=== PATIENT | female | born 1940 | race Caucasian/White ===

== ENCOUNTER 2020-08-30 08:00 | Outpatient (REF) | payer MEDICARE, OTHER, SELFPAY | END 2020-08-30 08:01 | disposition home or self-care (01) | LOC: HO.SH 08:00 | PROVIDERS: Visit Provider Internal Medicine | DX: Z13.89 Encounter for screening for other disorder (principal) | CPT/HCPCS: 92700 ==

== ENCOUNTER 2020-09-27 07:55 | Outpatient (REF) | payer MEDICARE, OTHER, SELFPAY ==
--- NOTE | 2020-09-27 09:54 | MHC.AU.P13 ---
Adult Audiological Evaluation Date of Visit: 09/27/20 Consulting It Architect Used: Not Applicable Reason for Appointment: Audiologic re-evaluation due to increased hearing and speech understanding difficulties as well as recent left ear discomfort. Previous Hearing Test Results: 12/25/2018 Right ear - Moderate to profound sensorineural hearing loss with 76% speech understanding at a level of 80 dB HL. Left ear - Borderline normal to severe sensorineural hearing loss with 76% speech discrimination at 80 dB HL. 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[employer] Systems Model: Virto V 50-10 Serial Number: [id number] Battery Size: 10 Warranty: 03/09/2019 Dispensed By: [facility] Date of Fittin02/20/2016 Hearing Instrument History- Left Ear: Book Store Associate: Phonak Model: Virto V 50-10 Serial Number: [id number] Battery Size: 10 Warranty: 03/09/2019 Dispensed By: [facility] Date of Fittin02/20/2016 Otoscopy: Right Ear: Unremarkable Left Ear: Dull tympanic membrane compared to right Tympanometry: Right Ear: Normal Middle Ear System (Type A) Left Ear: Normal Middle Ear System (Type A) Hearing Evaluation: Transducer(s) Used: Insert Earphones Bone Conduction Method: Conventional Audiometry Stimuli Used: Pure Tones Right Ear: Description of Hearing: Moderate to severe sensorineural hearing loss Left Ear: Description of Hearing: Borderline normal to severe sensorineural hearing loss Speech Recognition Threshold (SRT): Method Used: Monitored Live Voice Stimuli Used: Spondee Words Right Ear: 50 dB HL Left Ear: 40 dB HL Word Discrimination: Method: Recorded Lists Word Lists Used: NU-6 Right Ear: 52% at most comfortable hearing level of 85 dB HL 48% at 90 dB HL 56% at 80 dB HL Left Ear: 44% at most comfortable hearing level of 70 dB HL 76% at 75 dB HL Comparison: Compared to most recent evaluation: Hearing thresholds have decreased for both ears by 5-20 dB at 500-4000 Hz with speech discrimination for the left ear decreasing by 20% for the left ear compared to 2019 results. Recommendations: Recommendations: Audiological re-evaluation in one year. Trial with amplification is recommended. Medical clearance from a physician is required before fitting. Recommendations (Other): 1) In November, Homero's medical insurance coverage is changing. She will be investigating the hearing aid benefit and providers available. 2) A Hearing Aid Evaluation appointment is scheduled at this office for 10/04/2020 to fit a pair of Phonak Audeo M [id number]-ear hearing aids to trial for a few weeks, as well as discuss further appropriate styles available. Diagnosis: Primary Diagnosis: H90.3 Bilateral Sensorineural Hearing Loss Services Performed: Services Performed: Comprehensive Audiological Evaluation (CPT 99151) Tympanometry (CPT 25744) Signature: Provider: Erinn Garduno, CCC-A
== END 2020-09-27 07:56 | disposition home or self-care (01) ==
LOC: HO.SH 07:55
PROVIDERS: PCP Internal Medicine; Referring Provider Internal Medicine; Visit Provider Internal Medicine
DX: H90.3 Sensorineural hearing loss, bilateral (principal)
CPT/HCPCS: 92557; 92567

== ENCOUNTER 2020-10-04 09:59 | Outpatient (REF) | payer SELFPAY | END 2020-10-04 10:00 | disposition home or self-care (01) | LOC: HO.HAP 09:59 | PROVIDERS: PCP Internal Medicine; Referring Provider Internal Medicine; Visit Provider Internal Medicine | DX: Z13.89 Encounter for screening for other disorder (principal) | CPT/HCPCS: 92700 ==

== ENCOUNTER 2020-10-17 12:46 | Outpatient (REF) | payer SELFPAY | END 2020-10-17 12:47 | disposition home or self-care (01) | LOC: HO.HAP 12:46 | PROVIDERS: PCP Internal Medicine; Referring Provider Internal Medicine; Visit Provider Internal Medicine | DX: Z13.89 Encounter for screening for other disorder (principal) | CPT/HCPCS: 92700 ==

== ENCOUNTER 2020-11-06 12:14 | Outpatient (REF) | payer SELFPAY | END 2020-11-06 12:15 | disposition home or self-care (01) | LOC: HO.HAP 12:14 | PROVIDERS: Visit Provider Internal Medicine | DX: Z13.89 Encounter for screening for other disorder (principal) ==

== ENCOUNTER 2025-03-16 10:18 | Outpatient (AMB) | payer MEDICARE, SELFPAY ==
--- NOTE | 2025-03-16 10:23 | MHC.OFFVIS ---
Vital Signs 03/16/25 10:29 Height 5 ft Weight 170 lb BMI 33.2 BP 132/68 Blood Pressure Location Lt brachial Position Sitting Pulse 81 Pulse Source Pulse Oximeter Pulse Oximetry (%) 93 Oxygen Delivery Method Room Air Intake Visit Reasons: chronic cough Dry Cure Worker Required: No Bucket Hooker: Bucket Hooker offered & declined Accompanied by: Self / Same As Patient Allergies No Known Allergies Allergy (Verified 03/16/25 10:32) Medication List - Last Reconciled 03/16/25 by Olga George LPN amlodipine 5 mg PO DAILY omeprazole 20 mg PO DAILY HPI HPI chronic cough: Details: Homero is a pleasant 84-year-old female, former minimal smoker, with underlying hypertension, glaucoma, and paraesophageal hernia. She was referred by PCP for pulmonary evaluation for chronic cough. She reports cough has been present for the last 5 years and progressively worsening over the last year. She also reports associated productive cough yellow to white mucus, runny nose and nasal congestion. Denies fevers, chills or chest congestion. She also reports increased dyspnea, she would participate in line dancing 3 days a week for an hour and a half with no respiratory symptoms, but more recently has noticed she is unable to sustain that length of activity. She denies prior history of asthma, does endorse significant secondhand smoke exposure for many years. She denies any reflux symptoms. She denies history of recurrent respiratory infections. She is unsure of seasonal allergies, no recent allergy testing. No pets at home. She denies any occupational exposures. She denies any pertinent family history. Of note patient does have large hernia which is being monitored by thoracic surgery. [facility] Social History (Updated 03/16/25 @ 10:35 by Olga George LPN) Patient Tobacco Use Status: Never used Tobacco Review of Systems Const Denies chills, Denies excessive sweating, Denies fever(s), Denies headache(s) and Denies night sweats Eyes Denies dry eyes, Denies irritation and Denies itchy eyes ENT Reports Normal hearing present and Denies headache(s) Card Denies chest pain, Denies chest pain at rest, Denies chest pain with activity, Denies claudication, Denies leg edema, Denies orthopnea and Denies paroxysmal nocturnal dyspnea Resp Denies chest congestion, Denies excessive phlegm production, Denies pain on inspiration, Denies pain with cough and Denies stridor Musc Denies myalgias Neuro Reports Normal hearing present and Denies headache(s) Endo Denies excessive sweating Eldon/Lymph Denies lymphadenopathy Aller/Immun Denies itchy eyes and Reports seasonal rhinorrhea Physical Exam Vital Signs: Last Vital Signs Pulse 81 03/16/25 10:29 BP 132/68 03/16/25 10:29 Pulse Ox 93 03/16/25 10:29 Oxygen Delivery Method Room Air 03/16/25 10:29 BMI result Body Mass Index 33.2 Const General: cooperative, healthy appearing, comfortable, no acute distress, well developed and alert Orientation/consciousness: patient oriented x3 Limitations: no limitations HEENT Head: Yes normal to inspection, Yes normocephalic and Yes atraumatic Ears: hearing grossly normal bilaterally and external ears normal Eyes General: appearance normal, both eyes and all related structures Eyelids: Yes eyelids normal Sclerae: sclerae normal EOM: EOMs intact bilaterally Neck Neck: Yes normal visual inspection and Yes no lymphadenopathy Lymphatic: no lymphadenopathy noted Chest Chest palpation & inspection: normal inspection of the chest Resp Effort & Inspection: normal respiratory effort, able to speak in complete sentences, no audible wheezes, no cough, no stridor, not tachypneic, no tripod positioning and no use of accessory muscles Auscultation: clear to auscultation bilaterally Cardio Jugular venous distension: no JVD Rate: regular rate Rhythm: regular rhythm Skin Other: warm, dry General skin exam: no rashes or lesions noted Neuro General: patient oriented x3 Cranial nerves: Yes Normal hearing present Cognition (Neuro): normal cognition Gait exam (Neuro): Normal gait present Extrem General: Yes normal to inspection, Yes capillary refill normal, Yes no clubbing, cyanosis or edema and Yes no pedal edema Psych Appearance: grossly normal and well kempt Speech and movement: Normal speech and movement present and Clear speech present Affect: normal affect Attitude: cooperative Thought process: Normal thought process present Thought content: Normal thought content present Insight: Good insight present (Psych) Judgement: Good judgement present (Psych) Assessment & Plan Assessment & Plan (1) Chronic cough: Code(s): R05.3 - Chronic cough Category: Medical (2) Environmental allergies: Code(s): Z91.09 - Other allergy status, other than to drugs and biological substances Category: Medical Plan Homero presents for pulmonary evaluation for chronic cough, unclear etiology. Will send for PFT to assess for obstructive defect. Will send for RAST testing to assess for an allergic component. Will send for chest x-ray to assess for any underlying parenchymal condition contributing to symptoms. All questions were answered and patient is in agreement of plan. Will follow-up to review results or sooner if needed. Orders: Orders Complete Blood Count Auto Diff Today Z91.09 - Other allergy status, other than to drugs and biological substances PFT pulmonary function test Today R05.3 - Chronic cough XR chest 2V Today R05.3 - Chronic cough Immunoglobulin E Today Z91.09 - Other allergy status, other than to drugs and biological substances Resp Allergy Profile Region I Today Z91.09 - Other allergy status, other than to drugs and biological substances Coding Level of Care Code New Pt Level 4 (67504) Diagnoses Chronic cough R05.3 Environmental allergies Z91.09
[2025-03-16 10:29] VITALS: BP 132/68; PULSE 81; O2SAT 93; BMI 33.2
--- OUTSIDE RECORDS SUMMARY | 2025-03-16 11:31 | XMS_ITS | Clinical Summary ---
Author Organization [facility] Address [address] [place] [address] Phone Care Team Providers Care Editorial Assistant Name Role Phone Edgardo Mott MD Primary Care Provide r Family History Medical History Relation Name Comments Breast cancer Son Relation Name Status Comments Son Alive Social History Tobacco Use Types Packs/Day Years Used Date Smoking Tobacco: Never Assessed Comments No Sex and Gender Information Value Date Recorded Sex Assigned at Female 10/07/2024 10:16 AM EST Legal Sex Female 6:08 AM EST Gender Identity Female 10/07/2024 10:16 AM EST Sexual Orientation Straight 10/07/2024 10 :16 AM EST Obstetrics History Para Term AB IAB SAB Ectopic Multiple Livin g Live Births 2 Last Filed Vital Signs Vital Sign Reading Time Taken Comments Blood Pressure - - Pulse - - Temperature - - Respiratory Rate - - Oxygen Saturation - - Inhaled Oxygen Concentration - - Weight 77.1 kg (170 lb) 10/12/2024 2:49 PM EST Height 152.4 cm (5') 10/12/2024 2:49 PM EST Body Mass Index 33.2 10/12/2024 2:49 PM EST Plan of Treatment Health Maintenance Due Date Last Done Comments Zoster Vaccines (2 of 2) 09/26/2020 08/01/2020, 11/19 Cholesterol Screening (Lipid Panel) 10/20/2022 Depression Screening 10/20/2022 Falls Risk Assessment 10/20/2022 Medicare Annual Wellness Visit 10/20/2022 Osteoporosis Screening (Bone Density Screening) 10/20/2022 Social Influencers of Health Screening 10/20/2022 Hypertension/CHF/CAD Annual BMP Blood Test 10/13/2024 COVID-19 Vaccine (8 - Pfizer risk 2023- season) 2025 07/30/2024, 11/14/2023, 09/12/2022, Additional history exists DTaP,Tdap,and Td Vaccines (3 - Td or Tdap) 06/23/2025 06/23/2015, 06/15/2003 Pneumococcal Vaccine: 50+ Years Completed 03/23/2015, 09/01/2003 RSV Immunization Adult Patients Completed 08/22/2023 Influenza Vaccine Completed 07/30/2024, , 07/25/2022, Additional history exists HIB Vaccines Aged Out No longer eligi ble based on patient's age to complete this topic HPV Vaccines Aged Out No longer eligi ble based on patient's age to complete this topic Hepatitis A Vaccines Aged Out No long er eligible based on patient's age to complete this topic Hepatitis B Vaccines Aged Out No long er eligible based on patient's age to complete this topic IPV Vaccines Aged Out No longer eligi ble based on patient's age to complete this topic MMR Vaccines Aged Out No longer eligi ble based on patient's age to complete this topic Meningococcal ACWY Vaccine Aged Out N o longer eligible based on patient's age to complete this topic Meningococcal B Vaccine Aged Out No l onger eligible based on patient's age to complete this topic RSV Immunization Patients Under 20 months Aged Out No longer eligible based on patient's age to complete this topic Varicella Vaccines Aged Out No longer eligible based on patient's age to complete this topic Medical Devices Implanted Type Area Mold Mover Device Identifier Shelf Expiration Date Model / Serial / Lot Marker Tiss Wing 2trggr 17gx10 Biopsy Breast Ultrasound - [id number] - [id number] Implanted:Qty: 1 on 11/08/2024 by Adrian García MD at [facility] Imaging Implants Right: Breast CR BARD PERIPHERAL VASCULAR [id number] 06/13/2027 [id number] / [id number] / Insurance [employer] MED[employer] Care Teams Editorial Assistant Relationship Specialty Start Date End Date Edgardo Mott MD PCP - General Internal Medicine 10/07/24
== END 2025-03-16 11:05 | disposition home or self-care (01) ==
LOC: HO.HPSW 10:18
PROVIDERS: PCP Internal Medicine; Referring Provider Internal Medicine; Visit Provider Nurse Practitioner Family
DX: R05.3 Chronic cough (principal); Z91.09 Other allergy status, other than to drugs and biological substances
CPT/HCPCS: 99204

== ENCOUNTER → 2025-03-16 10:18 | Outpatient (BNVA) | payer MEDICARE, SELFPAY | PROVIDERS: PCP Internal Medicine; Referring Provider Internal Medicine; Visit Provider Nurse Practitioner Family | DX: Z13.89 Encounter for screening for other disorder (principal) | CPT/HCPCS: 99202 ==

== ENCOUNTER 2025-03-16 11:11 | Outpatient (REF) | payer MEDICARE, SELFPAY ==
--- OUTSIDE RECORDS SUMMARY | 2025-03-16 12:51 | XMS_ITS | Clinical Summary ---
Author Organization [facility] Address [address] [place] [address] Phone Care Team Providers Care Barley Steeper Name Role Phone Edgardo Mott MD Primary [...] this topic Medical Devices Implanted Type Area Mechanical Project Engineer Device Identifier Shelf Expiration Date Model / Serial / Lot Marker Tiss Wing 2trggr 17gx10 Biopsy Breast Ultrasound - [id number] - [id number] Implanted:Qty: 1 on 11/08/2024 by Adrian García MD at [facility] Imaging Implants Right: Breast CR BARD PERIPHERAL VASCULAR [id number] 06/13/2027 [id number] / [id number] / Insurance [employer] MED[employer] Care Teams Barley Steeper Relationship Specialty Start Date End Date Edgardo Mott MD PCP - General Internal Medicine 10/07/24
[2025-03-16 14:23] LABS: MANUAL DIFF FLAG NO
[2025-03-16 14:25] LABS: Basophils Percent Auto 0.5 % (0-2); Eosinophils Absolute Auto 0.1 X10*3/uL (0.0-0.4); Eosinophils Percent Auto 2.3 % (0-4); Hematocrit 39.3 % (37.0-47.0); Imm Gran Abs Auto 0.02 X10*3/uL (0.00-0.03); Imm Gran Pct Auto 0.3 % (0.0-0.4); Lymphocytes Absolute Auto 1.1 X10*3/uL (1.2-4.9); Lymphocytes Percent Auto 18.5 % (20-40); Mean Corpuscular HGB Conc 33.1 g/dl (31.0-35.0); Mean Corpuscular Hemoglobin 31.3 pg (27.0-33.0); Mean Corpuscular Volume 94.7 fL (80.0-98.0); Mean Platelet Volume 9.1 fL (9.4-12.3); Monocytes Absolute Auto 0.6 X10*3/uL (0.1-1.2); Monocytes Percent Auto 9.6 % (2-11); Neutrophils Absolute Auto 4.1 x10*3/uL (2.0-8.3); Neutrophils Percent Auto 68.8 % (45-73); Platelet Count 323 X10*3/uL (160-400); Red Blood Count 4.15 X10*6/uL (4.20-5.50); Red Cell Distribution Width 13.1 % (11.0-16.0)
[2025-03-17 22:58] LABS: Class Alternaria alternata 0; Class Aspergillus fumigatus 0; Class Bermuda Grass 0; Class Birch 0; Class Cat Dander 0; Class Cladosporium herbarum 0; Class Cockroach 0; Class Common Ragweed 0; Class Cottonwood 0; Class Derm. pterony 0; Class Dermatophagoides farinae 0; Class Dog Dander 0; Class Elm 0; Class Maple Box Elder 0; Class Mountain Cedar 0; Class Mouse Urine Protein 0; Class Mugwort 0; Class Oak 0; Class Penicillium crysogenum 0; Class Rough Pigweed 0; Class Sheep Sorrel 0; Class Sycamore 0; Class Timothy Grass 0; Class Walnut Tree 0; Class White Ash 0; Class White Mulberry 0; D001 IgE D pteronyssinus <0.10 kU/L; D002 - IgE D farinae <0.10 kU/L; E001 - IgE Cat Dander <0.10 kU/L; E005 - IgE Dog Dander <0.10 kU/L; E072-IgE Mouse Urine <0.10 kU/L; G002 IgE Bermuda Grass <0.10 kU/L; G006 - IgE Timothy Grass <0.10 kU/L; I006-IgE Cockroach, German <0.10 kU/L; Immunoglobulin E 4 kU/L (<OR=114); M001 IgE Penicillium chrysogen <0.10 kU/L; M002 - IgE Cladosporium herbar <0.10 kU/L; M003 - IgE Aspergillus fumigat <0.10 kU/L; M006 - IgE Alternaria alternat <0.10 kU/L; T001 IgE Maple/Box Elder <0.10 kU/L; T003 IgE Common Silver Birch <0.10 kU/L; T006 - IgE Cedar, Mountain <0.10 kU/L; T007 - IgE Oak, White <0.10 kU/L; T008 IgE Elm, American <0.10 kU/L; T010 - IgE Walnut <0.10 kU/L; T011 - IgE Maple Leaf Sycamore <0.10 kU/L; T014 - IgE Cottonwood <0.10 kU/L; T015 - IgE Ash, White <0.10 kU/L; T070 - IgE White Mulberry <0.10 kU/L; W001 - IgE Ragweed, Short <0.10 kU/L; W006 - IgE Mugwort <0.10 kU/L; W014 IgE Pigweed, Common <0.10 kU/L; W018 IgE Sheep Sorrel <0.10 kU/L
[2025-03-17 23:33] LABS: Immunoglobulin E 4 kU/L (<OR=114)
== END 2025-03-16 11:12 | disposition home or self-care (01) ==
LOC: HO.WFDLDS 11:11
PROVIDERS: Visit Provider Nurse Practitioner Family
DX: Z91.09 Other allergy status, other than to drugs and biological substances (principal); R05.3 Chronic cough
CPT/HCPCS: 36415; 82785; 85025; 86003; 99202

== ENCOUNTER 2025-04-29 12:41 | Outpatient (REF) | payer MEDICARE, SELFPAY ==
--- OUTSIDE RECORDS SUMMARY | 2025-04-29 13:10 | XMS_ITS | Clinical Summary ---
Author Organization [facility] Address [address] [place] [address] Phone Care Team Providers Care Direct Sales Professional Name Role Phone Edgardo Mott MD Primary [...] this topic Medical Devices Implanted Type Area Boring Machine Operator Device Identifier Shelf Expiration Date Model / Serial / Lot Marker Tiss Wing 2trggr 17gx10 Biopsy Breast Ultrasound - [id number] - [id number] Implanted:Qty: 1 on 11/08/2024 by Adrian García MD at [facility] Imaging Implants Right: Breast CR BARD PERIPHERAL VASCULAR [id number] 06/13/2027 [id number] / [id number] / Insurance [employer] MED[employer] Care Teams Direct Sales Professional Relationship Specialty Start Date End Date Edgardo Mott MD PCP - General Internal Medicine 10/07/24
--- NOTE | 2025-04-29 13:44 | PFT_ITS ---
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 Decreased expiratory reserve volume suggests extrathoracic restriction likely secondary to abdominal obesity. MTDD
[2025-04-29 14:08] VITALS: PULSE 75; O2SAT 95
== END 2025-04-29 12:42 | disposition home or self-care (01) ==
LOC: HO.RESP 12:41
PROVIDERS: PCP Internal Medicine; Visit Provider Nurse Practitioner Family
DX: R05.3 Chronic cough (principal)
CPT/HCPCS: 94010; 94640; 94727; 94729

== ENCOUNTER → 2025-04-29 13:44 | Outpatient (BNV) | payer MEDICARE, SELFPAY | PROVIDERS: PCP Internal Medicine; Visit Provider Internal Medicine Pulmonary Disease | DX: R05.3 Chronic cough (principal) | CPT/HCPCS: 94060; 94727; 94729 ==

== ENCOUNTER 2025-05-13 11:03 | Outpatient (AMB) | payer MEDICARE, SELFPAY ==
[2025-05-13 11:13] VITALS: BP 140/88; PULSE 66; O2SAT 98; BMI 32.7
--- NOTE | 2025-05-13 11:13 | A.OFFVIS_ITS ---
Vital Signs 05/13/25 11:13 Height 5 ft Weight 167 lb 8 oz BMI 32.7 BP 140/88 H Blood Pressure Location Rt brachial Position Sitting Pulse 66 Pulse Source Pulse Oximeter Pulse Oximetry (%) 98 Oxygen Delivery Method Room Air Intake Visit Reasons: chronic cough Allergies No Known Allergies Allergy (Verified 05/13/25 11:16) HPI HPI chronic cough: Details: Homero is a pleasant 85-year-old female, former minimal smoker, with underlying hypertension, glaucoma, and paraesophageal hernia. She was initially referred by PCP for pulmonary evaluation for chronic cough. She reports cough has been present for the last 5 years and progressively worsening over the last year. She continues to report productive cough with clear sputum and dyspnea on exertion. Today she presents to review PFT, CXR and RAST. She denies any visits to urgent care or hospitalizations related to respiratory distress. [facility] Social History Patient Tobacco Use Status: Never used Tobacco Review of Systems Const Denies chills, Denies excessive sweating, Denies fever(s), Denies headache(s) and Denies night sweats Eyes Denies dry eyes, Denies irritation and Denies itchy eyes ENT Reports Normal hearing present and Denies headache(s) Card Denies chest pain, Denies chest pain at rest, Denies chest pain with activity, Denies claudication, Denies leg edema, Reports dyspnea on exertion, Denies orthopnea and Denies paroxysmal nocturnal dyspnea Resp Denies change in phlegm color, Denies chest congestion, Reports cough, Denies hemoptysis, Denies excessive phlegm production, Denies pain on inspiration, De nies pain with cough, Reports dyspnea on exertion, Denies stridor and Reports wheezing Musc Denies myalgias Neuro Reports Normal hearing present and Denies headache(s) Endo Denies excessive sweating Eldon/Lymph Denies lymphadenopathy Aller/Immun Denies itchy eyes, Reports seasonal rhinorrhea and Reports wheezing Physical Exam Vital Signs: Last Vital Signs Pulse 66 05/13/25 11:13 BP 140/88 H 05/13/25 11:13 Pulse Ox 98 05/13/25 11:13 Oxygen Delivery Method Room Air 05/13/25 11:13 BMI result Body Mass Index 32.7 Const General: cooperative, healthy appearing, comfortable, no acute distress, well developed and alert Orientation/consciousness: patient oriented x3 Limitations: no limitations HEENT Head: Yes normal to inspection, Yes normocephalic and Yes atraumatic Ears: hearing grossly normal bilaterally and external ears normal Eyes General: appearance normal, both eyes and all related structures Eyelids: Yes eyelids normal Sclerae: sclerae normal EOM: EOMs intact bilaterally Neck Neck: Yes normal visual inspection and Yes no lymphadenopathy Lymphatic: no lymphadenopathy noted Chest Chest palpation & inspection: normal inspection of the chest Resp Effort & Inspection: normal respiratory effort, able to speak in complete sentences, no audible wheezes, no cough, no stridor, not tachypneic, no tripod positioning and no use of accessory muscles Auscultation: clear to auscultation bilaterally Cardio Jugular venous distension: no JVD Rate: regular rate Rhythm: regular rhythm Skin Other: warm, dry General skin exam: no rashes or lesions noted Neuro General: patient oriented x3 Cranial nerves: Yes Normal hearing present Cognition (Neuro): normal cognition Gait exam (Neuro): Normal gait present Extrem General: Yes normal to inspection, Yes capillary refill normal, Yes no clubbing, cyanosis or edema and Yes no pedal edema Psych Appearance: grossly normal and well kempt Speech and movement: Normal speech and movement present and Clear speech present Affect: normal affect Attitude: cooperative Thought process: Normal thought process present Thought content: Normal thought content present Insight: Good insight present (Psych) Judgement: Good judgement present (Psych) Office Procedures 6 Minute Walk Time:: 11:46 SPO2 % at rest: 97 Pulse at rest: 58 SPO2 % during excercise: 94 Pulse during excercise: 105 SPO2 % after excercise: 94 Pulse after excercise: 124 Distance in yards walked: 75 Candace Score: 7 Performance Observations:: Patient walked on level ground unassisted. Maintained O2 saturation of 94% or higher and pulse between 105 and 124. Patient does get sob during walk but did not require the use of supplemental oxygen. 35446 - 6 Minute Walk Results Reviewed Results Reviewed: RESULT: Chest 2 Views Frontal and Lat Chest 2 Views Frontal and Lat Reason: cough COMPARISON: 02/20/2023, CT 06/10/2023. FINDINGS: LUNGS AND PLEURA: Minimal basilar atelectasis. No pleural effusion. No pneumothorax. HEART, MEDIASTINUM AND NENA: Heart is normal in size. Increasing hiatal hernia. BONES AND SOFT TISSUES: No acute abnormality. Diffusely demineralized with a mild to moderate scoliotic curvature with moderate to advanced degenerative changes and multiple compression deformities. IMPRESSION: No evidence of an acute intrathoracic process. Hiatal hernia appears to be increasing in size in the interval. WSN: [id number] Ordering Physician: Kelsi Lund Reason For Exam cough Signature Line Dictated By: Domingo Ryan MD Dictated Date/Time: 03/16/25 1:49 pm Reviewed By: Domingo Ryan MD Signed By: Domingo Ryan MD Signed Date/Time: 03/16/25 1:49 pm Transcribed By: NATALIYA Transcribed Date/Time: 03/16/25 1:47 pm Assessment & Plan Assessment & Plan (1) Asthma: Code(s): J45.909 - Unspecified asthma, uncomplicated Category: Medical (2) Chronic cough: Code(s): R05.3 - Chronic cough Category: Medical Plan Reviewed RAST which was negative. Reviewed CXR which did not reveal any underlying parenchymal abnormalities. There was note of increasing hiatal hernia, which is being monitored by thoracic. PFT revealed combined moderate obstructive and restrictive ventilatory defects with positive bronchodilator response. Decreased expiratory reserve volume suggests extrathoracic r estriction likely secondary to abdominal obesity. DLCO normal. Discussed findings are suggestive of asthma. Will start Breo and discussed importance of good oral hygiene to prevent thrush. 6MWT performed today as patient stated her oxygen saturation in the past has decreased into the 60s however patient did not meet criteria for supplemental oxygen today, lowest oxygen saturation 94%. All questions were answered and patient is in agreement of plan. Will follow-up in 6-8 weeks or sooner if needed. Orders: Orders AMB 6 minute walk Today R05.3 - Chronic cough, Z91.09 - Other allergy status, other than to drugs and biological substances Medications: New fluticasone furoate-vilanterol 100-25 mcg/dose (Breo Ellipta) rinse mouth afterwards 1 inh inhalation DAILY 60 ea 6RF Coding Level of Care Code Est Pt Level 4 (37151) Diagnoses Asthma J45.909 Chronic cough R05.3 CPT Codes Coding ([id number])
[2025-05-13 11:55] VITALS: PULSE 58; O2SAT 97
--- OUTSIDE RECORDS SUMMARY | 2025-05-13 12:15 | XMS_ITS ---
Author Name [facility] Organization Unknown History of Medication Use Medication Directions Dispensed Refills Start Date End Date Stat omeprazole completed amlodipine completed
== END 2025-05-13 12:02 | disposition home or self-care (01) ==
LOC: HO.HPSW 11:03
PROVIDERS: PCP Internal Medicine; Visit Provider Nurse Practitioner Family
DX: J45.909 Unspecified asthma, uncomplicated (principal); R05.3 Chronic cough
CPT/HCPCS: 94618; 99214

== ENCOUNTER → 2025-05-13 11:03 | Outpatient (BNVA) | payer MEDICARE, SELFPAY | PROVIDERS: PCP Internal Medicine; Visit Provider Nurse Practitioner Family | DX: R05.3 Chronic cough (principal); J45.909 Unspecified asthma, uncomplicated | CPT/HCPCS: 94618; 99212 ==

== ENCOUNTER 2025-07-12 13:47 | Outpatient (AMB) | payer MEDICARE, SELFPAY ==
[2025-07-12 13:52] VITALS: BP 122/64; PULSE 70; O2SAT 97; BMI 32.2
--- NOTE | 2025-07-12 13:52 | MHC.OFFVIS ---
Vital Signs 07/12/25 13:52 Height 5 ft Weight 165 lb BMI 32.2 BP 122/64 Blood Pressure Location Rt brachial Position Sitting Pulse 70 Pulse Source Pulse Oximeter Pulse Oximetry (%) 97 Oxygen Delivery Method Room Air Intake Visit Reasons: chronic cough Intern Product Marketing Manager Required: No Gallery Or Museum Guide: Gallery Or Museum Guide offered & declined Accompanied by: Self / Same As Patient Allergies No Known Allergies Allergy (Verified 07/12/25 13:56) Medication List - Last Reconciled 07/12/25 by Olga George LPN amlodipine 5 mg PO DAILY Breo Ellipta 100-25 mcg/dose (fluticasone furoate-vilanterol) 1 inh inhalation DAILY NS omeprazole 20 mg PO DAILY sodium chloride 5% (Libby 128) 1 appl ophthalmic (eye) BID timolol maleate 0.5% 1 drp ophthalmic (eye) DAILY HPI HPI chronic cough: Details: Homero is a pleasant 85-year-old female, former minimal smoker, with underlying asthma, hypertension, glaucoma, and paraesophageal hernia. She was initially referred by PCP for pulmonary evaluation for chronic cough that has been present for the last 5 years and progressively worsening over the last year. Recent PFT suggestive of asthma and patient was started on Breo. She reports notable improvements in endurance and dyspnea as well as cough, now intermittent. She denies any visits to urgent care or hospitalizations related to respiratory distress since the last visit. [facility] Social History (Updated 07/12/25 @ 13:57 by Olga George LPN) Patient Tobacco Use Status: Never used Tobacco Review of Systems Const Denies chills, Denies excessive sweating, Denies fever(s), Denies headache(s) and Denies night sweats Eyes Denies dry eyes, Denies irritation and Denies itchy eyes ENT Reports Normal hearing present and Denies headache(s) Card Denies chest pain, Denies chest pain at rest, Denies chest pain with activity, Denies claudication, Denies leg edema, Denies dyspnea on exertion, Denies orthopnea and Denies paroxysmal nocturnal dyspnea Resp Denies change in phlegm color, Denies chest congestion, Reports cough, Denies hemoptysis, Denies excessive phlegm production, Denies pain on inspiration, Denies pain with cough, Denies dyspnea on exertion, Denies stridor and Denies wheezing Musc Denies myalgias Neuro Reports Normal hearing present and Denies headache(s) Endo Denies excessive sweating Eldon/Lymph Denies lymphadenopathy Aller/Immun Denies itchy eyes, Reports seasonal rhinorrhea and Denies wheezing Physical Exam Vital Signs: Last Vital Signs Pulse 70 07/12/25 13:52 BP 122/64 07/12/25 13:52 Pulse Ox 97 07/12/25 13:52 Oxygen Delivery Method Room Air 07/12/25 13:52 BMI result Body Mass Index 32.2 Const General: cooperative, healthy appearing, comfortable, no acute distress, well developed and alert Orientation/consciousness: patient oriented x3 Limitations: no limitations HEENT Head: Yes normal to inspection, Yes normocephalic and Yes atraumatic Ears: hearing grossly normal bilaterally and external ears normal Eyes General: appearance normal, both eyes and all related structures Eyelids: Yes eyelids normal Sclerae: sclerae normal EOM: EOMs intact bilaterally Neck Neck: Yes normal visual inspection and Yes no lymphadenopathy Lymphatic: no lymphadenopathy noted Chest Chest palpation & inspection: normal inspection of the chest Resp Effort & Inspection: normal respiratory effort, able to speak in complete sentences, no audible wheezes, no cough, no stridor, not tachypneic, no tripod positioning and no use of accessory muscles Auscultation: clear to auscultation bilaterally Cardio Jugular venous distension: no JVD Rate: regular rate Rhythm: abnormal rhythm Skin Other: warm, dry General skin exam: no rashes or lesions noted Neuro General: patient oriented x3 Cranial nerves: Yes Normal hearing present Cognition (Neuro): normal cognition Gait exam (Neuro): Normal gait present Extrem General: Yes normal to inspection, Yes capillary refill normal, Yes no clubbing, cyanosis or edema and Yes no pedal edema Psych Appearance: grossly normal and well kempt Speech and movement: Normal speech and movement present and Clear speech present Affect: normal affect Attitude: cooperative Thought process: Normal thought process present Thought content: Normal thought content present Insight: Good insight present (Psych) Judgement: Good judgement present (Psych) Assessment & Plan Assessment & Plan (1) Asthma: Code(s): J45.909 - Unspecified asthma, uncomplicated Category: Medical (2) Chronic cough: Code(s): R05.3 - Chronic cough Category: Medical Plan At this time Homero reports good control of respiratory symptoms with the initiation of Breo, advised to continue. She is aware to call if symptoms change. On exam patient with abnormal HR, which is a new finding. Advised her to seek immediate medical attention if her symptoms worsen or if she experiences new symptoms such as chest pain, dizziness or worsening dyspnea or fatigue. Will send for EKG which she was agreeable to obtain at [facility] [place]. She has an upcoming appt with PCP which she will further discuss. All questions were answered and patient is in agreement of plan. Will follow-up in 6-8 weeks or sooner if needed. Orders: Orders ECG 12 lead EKG Today I49.9 - Cardiac arrhythmia, unspecified Coding Level of Care Code Est Pt Level 4 (16140) Diagnoses Asthma J45.909 Chronic cough R05.3
--- OUTSIDE RECORDS SUMMARY | 2025-07-12 14:43 | XMS_ITS ---
Author Name [facility] Organization Unknown History of Medication Use Medication Directions Dispensed Refills Start Date End Date Stat omeprazole completed amlodipine completed
--- OUTSIDE RECORDS SUMMARY | 2025-07-12 14:43 | XMS_ITS | Clinical Summary ---
Author Organization [facility] Address [address] [place] [address] Phone Care Team Providers Care Finisher Map And Chart Name Role Phone Edgardo Mott MD Primary [...] 08/01/2020, 11/19 Cholesterol Screening (Lipid Panel) 10/20/2022 Falls Risk Assessment 10/20/2022 Medicare Annual Wellness Visit 10/20/2022 Osteoporosis Screening (Bone Density Screening) 10/20/2022 Social Influencers of Health Screening 10/20/2022 Hypertension/CHF/CAD Annual BMP Blood Test 10/13/2024 Depression Screening 11/17/2024 COVID-19 Vaccine (8 - Pfizer risk 2023- season) 2025 07/30/2024, 11/14/2023, 09/12/2022, Additional history exists DTaP,Tdap,and Td Vaccines (3 - Td or Tdap) 06/23/2025 06/23/2015, 06/15/2003 Influenza Vaccine (#1) 2025 , 08/01/2023, 07/25/2022, Additional history exists Pneumococcal Vaccine: 50+ Years Completed 03/23/2015, 09/01/2003 RSV Immunization Adult Patients Completed 08/22/2023 HIB Vaccines Aged Out No longer eligi [...] this topic Medical Devices Implanted Type Area Nurse First Aid Device Identifier Shelf Expiration Date Model / Serial / Lot Marker Tiss Wing 2trggr 17gx10 Biopsy Breast Ultrasound - [id number] - [id number] Implanted:Qty: 1 on 11/08/2024 by Adrian García MD at [facility] Imaging Implants Right: Breast CR BARD [employer]HER[employer] VASC[employer] [id number] 06/13/2027 [id number] / [id number] / Insurance [facility] MEDICARE Care Teams Finisher Map And Chart Relationship Specialty Start Date End Date Edgardo Mott MD PCP - General Internal Medicine 10/07/24
== END 2025-07-12 14:44 | disposition home or self-care (01) ==
LOC: HO.HPSW 13:47
PROVIDERS: PCP Internal Medicine; Visit Provider Nurse Practitioner Family
DX: J45.909 Unspecified asthma, uncomplicated (principal); R05.3 Chronic cough
CPT/HCPCS: 99214

== ENCOUNTER → 2025-07-12 13:47 | Outpatient (BNVA) | payer MEDICARE, SELFPAY | PROVIDERS: PCP Internal Medicine; Visit Provider Nurse Practitioner Family | DX: R05.3 Chronic cough (principal); J45.909 Unspecified asthma, uncomplicated | CPT/HCPCS: 99212 ==

== ENCOUNTER → 2025-07-14 10:56 | Outpatient (REF) | payer MEDICARE, SELFPAY ==
--- NOTE | 2025-07-14 11:03 | ECG_ITS ---
Test Reason : cardiac arrhythmia Blood Pressure : */* mmHG Vent. Rate : 70 BPM Atrial Rate : 70 BPM P-R Int : 180 ms QRS Dur : 104 ms QT Int : 386 ms P-R-T Axes : -9 -1 5 degrees QTcB Int : 416 ms Normal sinus rhythm Normal ECG No previous ECGs available Referred By: Kelsi Lund Electronically Signed By: JIM SERRANO
--- OUTSIDE RECORDS SUMMARY | 2025-07-14 12:21 | XMS_ITS | Clinical Summary ---
Author Organization [facility] Address [address] [place] [address] Phone Care Team Providers Care Scrap Iron Cutter Name Role Phone Edgardo Mott MD Primary [...] this topic Medical Devices Implanted Type Area Child Development Specialist Device Identifier Shelf Expiration Date Model / Serial / Lot Marker Tiss Wing 2trggr 17gx10 Biopsy Breast Ultrasound - [id number] - [id number] Implanted:Qty: 1 on 11/08/2024 by Adrian García MD at [facility] Imaging Implants Right: Breast CR [employer]ARD [employer] VASC[employer] [id number] 06/13/2027 [id number] / [id number] / Insurance [facility] MEDICARE Care Teams Scrap Iron Cutter Relationship Specialty Start Date End Date Edgardo Mott MD PCP - General Internal Medicine 10/07/24
== END ==
LOC: HO.CARD 10:56
PROVIDERS: PCP Internal Medicine; Visit Provider Nurse Practitioner Family
DX: I49.9 Cardiac arrhythmia, unspecified (principal)
CPT/HCPCS: 93005

== ENCOUNTER → 2025-07-14 11:03 | Outpatient (BNV) | payer MEDICARE, SELFPAY | PROVIDERS: PCP Internal Medicine; Visit Provider Internal Medicine | DX: I49.9 Cardiac arrhythmia, unspecified (principal) | CPT/HCPCS: 93010 ==

== ENCOUNTER 2025-10-11 12:49 | Outpatient (AMB) | payer MEDICARE, SELFPAY ==
--- NOTE | 2025-10-11 13:00 | A.OFFVIS_ITS ---
Vital Signs 10/11/25 13:01 Height 5 ft Weight 165 lb 2 oz BMI 32.2 BP 160/88 H Blood Pressure Location Rt brachial Position Sitting Pulse 74 Pulse Source Pulse Oximeter Pulse Oximetry (%) 95 Oxygen Delivery Method Room Air Intake Visit Reasons: chronic cough Allergies No Known Allergies Allergy (Verified 10/11/25 13:04) HPI HPI chronic cough: Details: Homero is a pleasant 85-year-old female, former minimal smoker, with underlying asthma, hypertension, glaucoma, and paraesophageal hernia. Since being on Breo patient has had resolution of cough and reports improvements in overall energy levels. She denies chest tightness and wheezing. She denies any visits to urgent care or hospitalizations related to respiratory distress since the last visit. Her most bothersome symptoms is persistent eye watering and has upcoming appointment with ophthmalogy. At the last visit, abnormal heart rhythm noted and sent for EKG 06/2025 which was unremarkable. Of note, patient with large paraesophageal hernia, recently was evaluated by surgery however hesistent to proceed at this time. [facility], [facility] Social History Patient Tobacco Use Status: Never used Tobacco Review of Systems Const Denies chills, Denies excessive sweating, Denies fever(s), Denies headache(s) and Denies night sweats ENT Reports Normal hearing present and Denies headache(s) Card Denies chest pain, Denies chest pain at rest, Denies chest pain with activity, Denies claudication, Denies leg edema, Denies dyspnea on exertion, Denies orthopnea and Denies paroxysmal nocturnal dyspnea Resp Denies change in phlegm color, Denies chest congestion, Denies hemoptysis, Denies excessive phlegm production, Denies pain on inspiration, Denies pain with cough, Denies dyspnea on exertion, Denies stridor and Denies wheezing Musc Denies myalgias Neuro Reports Normal hearing present and Denies headache(s) Endo Denies excessive sweating Eldon/Lymph Denies lymphadenopathy Aller/Immun Reports seasonal rhinorrhea and Denies wheezing Physical Exam Vital Signs: Last Vital Signs Pulse 74 10/11/25 13:01 BP 160/88 H 10/11/25 13:01 Pulse Ox 95 10/11/25 13:01 Oxygen Delivery Method Room Air 10/11/25 13:01 BMI result Body Mass Index 32.2 Const General: cooperative, healthy appearing, comfortable, no acute distress, well developed and alert Orientation/consciousness: patient oriented x3 Limitations: no limitations HEENT Head: Yes normal to inspection, Yes normocephalic and Yes atraumatic Ears: hearing grossly normal bilaterally and external ears normal Eyes General: appearance normal, both eyes and all related structures Eyelids: Yes eyelids normal Sclerae: sclerae normal EOM: EOMs intact bilaterally Neck Neck: Yes normal visual inspection and Yes no lymphadenopathy Lymphatic: no lymphadenopathy noted Chest Chest palpation & inspection: normal inspection of the chest Resp Effort & Inspection: normal respiratory effort, able to speak in complete sentences, no audible wheezes, no cough, no stridor, not tachypneic, no tripod positioning and no use of accessory muscles Auscultation: clear to auscultation bilaterally Cardio Jugular venous distension: no JVD Rate: regular rate Rhythm: abnormal rhythm Skin Other: warm, dry General skin exam: no rashes or lesions noted Neuro General: patient oriented x3 Cranial nerves: Yes Normal hearing present Cognition (Neuro): normal cognition Gait exam (Neuro): Normal gait present Extrem General: Yes normal to inspection, Yes capillary refill normal, Yes no clubbing, cyanosis or edema and Yes no pedal edema Psych Appearance: grossly normal and well kempt Speech and movement: Normal speech and movement present and Clear speech present Affect: normal affect Attitude: cooperative Thought process: Normal thought process present Thought content: Normal thought content present Insight: Good insight present (Psych) Judgement: Good judgement present (Psych) Assessment & Plan Assessment & Plan (1) Asthma: Code(s): J45.909 - Unspecified asthma, uncomplicated Category: Medical (2) Chronic cough: Code(s): R05.3 - Chronic cough Category: Medical (3) Abnormal heart rhythm: Code(s): I49.9 - Cardiac arrhythmia, unspecified Category: Medical Plan At this time Homero reports good control of respiratory symptoms with the initiation of Breo, advised to continue. She is aware to call if symptoms change. On exam patient with persistent abnormal HR, which is a new finding and EKG 06/2025 unremarkable. Advised her to seek immediate medical attention if her symptoms worsen or if she experiences new symptoms such as chest pain, dizziness or worsening dyspnea or fatigue. Will enter order to cardiology for further evaluation. All questions were answered and patient is in agreement of plan. Will follow-up in 3 months or sooner if needed. Orders: Referrals Cardiology Referral I49.9 - Cardiac arrhythmia, unspecified Coding Level of Care Code Est Pt Level 4 (72266) Diagnoses Asthma J45.909 Chronic cough R05.3 Abnormal heart rhythm I49.9
[2025-10-11 13:01] VITALS: BP 160/88; PULSE 74; O2SAT 95; BMI 32.2
--- OUTSIDE RECORDS SUMMARY | 2025-10-11 16:28 | XMS_ITS | Clinical Summary ---
Author Organization [facility] Address [address] [place] [address] Phone Care Team Providers Care Junior Software Developer Name Role Phone Edgardo Mott MD Primary [...] Due Date Last Done Comments Zoster Vaccines (3 of 3) 09/26/2020 08/01/2020, 11/19 Cholesterol Screening (Lipid Panel) 10/20/2022 Falls Risk Assessment 10/20/2022 Medicare Annual Wellness Visit 10/20/2022 Osteoporosis Screening (Bone Density Screening) 10/20/2022 Social Influencers of Health Screening 10/20/2022 Hypertension/CHF/CAD Annual BMP Blood Test 10/13/2024 Depression Screening 11/17/2024 DTaP,Tdap,and Td Vaccines (3 - Td or Tdap) 06/23/2025 06/23/2015, 06/15/2003 COVID-19 Vaccine ( season) 2025 07/30/2024, 11/14/2023, 09/12/2022, Additional history exists Influenza Vaccine (#1) 2025 , 08/01/2023, 07/25/2022, [...] this topic Medical Devices Implanted Type Area Systems Lead Device Identifier Shelf Expiration Date Model / Serial / Lot Marker Tiss Wing 2trggr 17gx10 Biopsy Breast Ultrasound - [id number] - [id number] Implanted:Qty: 1 on 11/08/2024 by Adrian García MD at [facility] Imaging Implants Right: Breast CR BARD PERIPHER[employer] VASCULAR [id number] 06/13/2027 [id number] / [id number] / Insurance [employer] MEDICARE Care Teams Junior Software Developer Relationship Specialty Start Date End Date Edgardo Mott MD PCP - General Internal Medicine 10/07/24
== END 2025-10-11 13:33 | disposition home or self-care (01) ==
LOC: HO.HPSW 12:50
PROVIDERS: PCP Internal Medicine; Visit Provider Nurse Practitioner Family
DX: J45.909 Unspecified asthma, uncomplicated (principal); R05.3 Chronic cough; I49.9 Cardiac arrhythmia, unspecified
CPT/HCPCS: 99214

== ENCOUNTER → 2025-10-11 12:49 | Outpatient (BNVA) | payer MEDICARE, SELFPAY | PROVIDERS: PCP Internal Medicine; Visit Provider Nurse Practitioner Family | DX: J45.909 Unspecified asthma, uncomplicated (principal); R05.3 Chronic cough; I49.9 Cardiac arrhythmia, unspecified; K44.9 Diaphragmatic hernia without obstruction or gangrene | CPT/HCPCS: 99212 ==